=== PATIENT | female | born 1995 | race Caucasian/White ===

== ENCOUNTER 2018-07-25 19:07 | Emergency (ER) | payer BC ==
[~2018-07-25] VITALS: Ht 165.1 cm; Wt 90.0 kg
[2018-07-25 21:32] LABS: BASOPHILS # (AUTO) 0.1 X10'3 (0-0.2); BASOPHILS % (AUTO) 0.9 % (0-1); EOSINOPHILS # (AUTO) 0.1 X10'3 (0-0.9); EOSINOPHILS % (AUTO) 1.4 % (0-6); HEMATOCRIT 43.3 % (35.0-45.0); HEMOGLOBIN 14.5 g/dl (12.0-16.0); LYMPHOCYTES # (AUTO) 3.4 X10'3 (1.1-4.8); LYMPHOCYTES % (AUTO) 43.6 % (21-51); MEAN CORPUSCULAR HEMOGLOBIN 29.8 PG (27.0-31.0); MEAN CORPUSCULAR HGB CONC 33.4 g/dL (33.0-36.5); MEAN CORPUSCULAR VOLUME 89.1 FL (78-98); MEAN PLATELET VOLUME 6.8 FL (7.4-10.4); MONOCYTES # (AUTO) 0.8 X10'3 (0-0.9); MONOCYTES % (AUTO) 10.2 % (2-12); NEUTROPHILS # (AUTO) 3.4 X10'3 (1.8-7.7); NEUTROPHILS % (AUTO) 43.9 % (42-75); PLATELET COUNT 350 X10'3 (140-440); RED BLOOD COUNT 4.86 X10'6 (4.20-5.60); RED CELL DISTRIBUTION WIDTH 13.8 % (11.5-14.5); WHITE BLOOD COUNT 7.7 X10'3 (4.5-11.0)
[2018-07-25 21:46] LABS: ALBUMIN 3.8 G/DL (3.4-5.0); ANION GAP 6 (8-16); BILIRUBIN,TOTAL 0.3 MG/DL (0.1-1.0); BLOOD UREA NITROGEN 14 MG/DL (7-18); BUN/CREATININE RATIO 18.9 (6.6-38.0); CALCIUM 8.8 MG/DL (8.5-10.1); CHLORIDE 103 MMOL/L (99-107); CREATININE 0.74 MG/DL (0.40-0.90); GLUCOSE 89 MG/DL (70-104); POTASSIUM 4.1 MMOL/L (3.5-5.1); SODIUM 137 MMOL/L (135-145); TOTAL CARBON DIOXIDE 28.4 MMOL/L (24-32); TOTAL PROTEIN 7.7 G/DL (6.4-8.2); eGFR > 90 ML/MIN
[2018-07-25 21:47] LABS: ALANINE AMINOTRANSFERASE 48 U/L (12-78); ALKALINE PHOSPHATASE 84 IU/L (46-116); ASPARTATE AMINO TRANSFERASE 18 U/L (10-37)
[2018-07-25 21:56] LABS: ETHANOL < 0.010 GM/DL (0.0-0.010)
--- NOTE | 2018-07-25 22:44 | NUR ---
Pt reports audio hallucinations currently, which she reports is her baseline. She reports male voice tends to be "mean and threatening, but he's kind of quiet now" and female voice "is the cautious one... she's the one I hear more clearly right now." Pt reports a recent psychotropic medication change, but d/t financial constraints and "problems with my insurance, I haven't started yet." Pt verbally agreed to inform staff of any changes r/t audio hallucinations, particularly if she is not able to "ignore them" as effectively as she purportedly is doing currently.
--- NOTE | 2018-07-25 23:02 | NUR ---
Discussed pt status and home meds with Dr Eduardo; new order received.
[2018-07-25] MEDS ORDERED: traZODone 150mg tablet PO ONE (23:20)
[2018-07-25 23:47] LABS: URINE HCG NEGATIVE (NEG)
[2018-07-26 00:03] LABS: URINE AMPHETAMINE SCREEN NEGATIVE (Neg); URINE BARBITUATE SCREEN NEGATIVE (Neg); URINE BENZODIAZEPINES SCREEN NEGATIVE (Neg); URINE CANNABINOID SCREEN POSITIVE (Neg); URINE COCAINE SCREEN NEGATIVE (Neg); URINE METHADONE SCREEN NEGATIVE (Neg); URINE OPIATE SCREEN NEGATIVE (Neg); URINE PHENCYCLIDINE SCREEN NEGATIVE (Neg)
[2018-07-26 05:30] VITALS: BP 133/86
--- NOTE | 2018-07-26 05:55 | NUR ---
Packet sent to [facility]. Unable to confirm receipt of packet as [id number] hours.
--- NOTE | 2018-07-26 06:35 | NUR ---
Patient sleeping on right side. No distress observed. Continue to monitor.
[2018-07-26] MEDS ORDERED: ALPR-624 PO (07:43)
[2018-07-26] MEDS ORDERED: DULO-31 PO (07:43)
[2018-07-26] MEDS ORDERED: TOPI50CA5 PO (07:43)
[2018-07-26] MEDS ORDERED: CARI6CAP PO (07:43)
[2018-07-26] MEDS ORDERED: duloxetine 30mg CAPSULE.DR PO SCH (08:00)
[2018-07-26] MEDS ORDERED: topiramate 25mg tablet PO SCH (08:00)
--- NOTE | 2018-07-26 08:20 | NUR ---
Patient sleeping in bed. No distress observed. Continue to monitor.
--- NOTE | 2018-07-26 10:40 | NUR ---
Patient taking on phone with family. Patient has had many calls checking up on her. No distress observed. Continue to monitor.
[2018-07-26] MEDS ORDERED: traZODone 150mg tablet PO SCH (20:00)
[2018-07-26] MEDS ORDERED: CARIPRAZINE 1.5 MG CAPSULE PO SCH (21:00)
== END 2018-07-26 11:45 | disposition home or self-care (01) ==
LOC: ER 19:08
DX: R45.851 Suicidal ideations (principal); F31.9 Bipolar disorder, unspecified; F20.9 Schizophrenia, unspecified
CPT/HCPCS: 36415; 80053; 80305; 80320; 81025; 84443; 85025; 99284

== ENCOUNTER 2019-05-29 19:52 | Emergency (ER) | payer BC, MEDICAID ==
[~2019-05-29] VITALS: Ht 165.1 cm; Wt 90.0 kg
[~2019-05-29 19:52] MED LIST: ALPR-624 PO; CARI6CAP PO; DULO-31 PO; TOPI50CA5 PO
--- NOTE | 2019-05-29 20:13 | NUR ---
Patient brought to bed 22 from Triage. Patient is being changed into green scrubs by the battery technician.
--- NOTE | 2019-05-29 20:20 | NUR ---
Patient is changed into green scrubs and give non slip socks. Patient ambulates to the bathroom and back.
[2019-05-29] MEDS ORDERED: TOPI50CA5 PO (20:52)
[2019-05-29] MEDS ORDERED: TRAZ-251 PO (20:54)
[2019-05-29] MEDS ORDERED: TRAZ-256 PO (21:03)
[2019-05-29] MEDS ORDERED: DESV50TA10 PO (21:06)
[2019-05-29] MEDS ORDERED: DESV50TA PO (21:11)
[2019-05-29] MEDS ORDERED: traZODone 50mg tablet PO SCH (21:25)
[2019-05-29] MEDS ORDERED: traZODone 50mg tablet PO ONE (21:25)
[2019-05-29] MEDS ORDERED: ALPRAZolam 0.5mg tablet PO PRN (21:30)
[2019-05-29 22:19] LABS: BASOPHILS # (AUTO) 0.1 X10'3 (0-0.2); BASOPHILS % (AUTO) 0.7 % (0-1); EOSINOPHILS # (AUTO) 0.2 X10'3 (0-0.9); EOSINOPHILS % (AUTO) 1.5 % (0-6); HEMATOCRIT 44.5 % (35.0-45.0); LYMPHOCYTES # (AUTO) 2.9 X10'3 (1.1-4.8); LYMPHOCYTES % (AUTO) 23.4 % (21-51); MEAN CORPUSCULAR HEMOGLOBIN 30.2 PG (27.0-31.0); MEAN CORPUSCULAR HGB CONC 33.8 g/dL (33.0-36.5); MEAN CORPUSCULAR VOLUME 89.1 FL (78-98); MEAN PLATELET VOLUME 7.1 FL (7.4-10.4); MONOCYTES # (AUTO) 0.6 X10'3 (0-0.9); MONOCYTES % (AUTO) 5.1 % (2-12); NEUTROPHILS # (AUTO) 8.5 X10'3 (1.8-7.7); NEUTROPHILS % (AUTO) 69.3 % (42-75); PLATELET COUNT 393 X10'3 (140-440); RED BLOOD COUNT 4.99 X10'6 (4.20-5.60); RED CELL DISTRIBUTION WIDTH 14.2 % (11.5-14.5); WHITE BLOOD COUNT 12.3 X10'3 (4.5-11.0)
[2019-05-29 22:19] LABS: CLARITY,URINE SLIGHTLY CLOUDY (Clear); COLOR,URINE YELLOW (Yellow); GLUCOSE, URINE NEGATIVE (Neg); KETONES,URINE NEGATIVE (Neg); LEUKOCYTE ESTERASE ,URINE SMALL (Neg); NITRITES, URINE NEGATIVE (Neg); OCCULT BLOOD,URINE LARGE (Neg); PROTEIN,URINE NEGATIVE (Neg); UROBILINOGEN,URINE 0.2 E.U/dL (0.2-1.0)
[2019-05-29 22:23] LABS: UA COLLECTION TYPE CLN CATCH MIDSTREAM; URINE HCG NEGATIVE (NEG)
[2019-05-29 22:30] LABS: ALANINE AMINOTRANSFERASE 13 U/L (12-78); ALBUMIN 3.8 G/DL (3.4-5.0); ALKALINE PHOSPHATASE 91 IU/L (46-116); ANION GAP 8 (8-16); ASPARTATE AMINO TRANSFERASE 14 U/L (10-37); BILIRUBIN,TOTAL 0.1 MG/DL (0.1-1.0); BLOOD UREA NITROGEN 11 MG/DL (7-18); BUN/CREATININE RATIO 14.3 (6.6-38.0); CALCIUM 8.6 MG/DL (8.5-10.1); CHLORIDE 105 MMOL/L (99-107); CREATININE 0.77 MG/DL (0.40-0.90); ETHANOL < 0.010 GM/DL (0.0-0.010); GLUCOSE 90 MG/DL (70-104); POTASSIUM 3.7 MMOL/L (3.5-5.1); SODIUM 140 MMOL/L (135-145); TOTAL CARBON DIOXIDE 27.4 MMOL/L (24-32); TOTAL PROTEIN 7.7 G/DL (6.4-8.2); eGFR > 90 ML/MIN
[2019-05-29 22:33] LABS: BACTERIA,URINE 2+ /HPF (Neg); RBC,URINE 0-2 /HPF (0-2); SQUAMOUS EPITHELIAL CELL,UR MANY /LPF (FEW)
[2019-05-29 22:37] LABS: ACETAMINOPHEN < 2.0 UG/ML (10-30)
[2019-05-29 22:38] LABS: URINE AMPHETAMINE SCREEN NEGATIVE (Neg); URINE BARBITUATE SCREEN NEGATIVE (Neg); URINE BENZODIAZEPINES SCREEN POSITIVE (Neg); URINE CANNABINOID SCREEN POSITIVE (Neg); URINE COCAINE SCREEN NEGATIVE (Neg); URINE METHADONE SCREEN NEGATIVE (Neg); URINE OPIATE SCREEN NEGATIVE (Neg); URINE PHENCYCLIDINE SCREEN NEGATIVE (Neg)
--- NOTE | 2019-05-29 23:00 | NUR ---
Patient is sleeping quietly on her right side.
--- NOTE | 2019-05-30 00:47 | NUR ---
Patient is sleeping quietly on her right side.
--- NOTE | 2019-05-30 02:44 | NUR ---
Patient is sleeping quietly on her right side.
--- NOTE | 2019-05-30 04:30 | NUR ---
Patient sleeping on her left side.
--- NOTE | 2019-05-30 05:54 | NUR ---
Patient sleeping on her left side in bed.
--- NOTE | 2019-05-30 06:46 | NUR ---
Patient is sleeping on her left side in bed. No s/s of distress noted.
--- NOTE | 2019-05-30 07:59 | NUR ---
Patient up to restroom. Now sitting up in bed quietly.
[2019-05-30] MEDS ORDERED: DESVENLAFAXINE 25 MG PO SCH (08:00)
--- NOTE | 2019-05-30 09:01 | NUR ---
Patient states that she has been off her medications for the last two days. When she was at home, she started "freaking out" about the co-v-19, she states that she lives alone. She was hearing two voices one telling her to hurt herself. Today, she denies AVH, and denies SI. Patient feels safe in hospital. Awaiting [facility] eval.
--- NOTE | 2019-05-30 09:45 | NUR ---
Jeaneth Bermudez from [facility] here to evaluate patient. She is releasing her to home.
[2019-05-30 09:54] VITALS: BP 103/66
[2019-05-30] MEDS ORDERED: traZODone 50mg tablet PO SCH (21:00)
[2019-05-30] MEDS ORDERED: CARIPRAZINE HYDROCHLORIDE PO SCH (21:00)
== END 2019-05-30 10:10 | disposition home or self-care (01) ==
LOC: ER 19:53
DX: F20.0 Paranoid schizophrenia (principal); F31.9 Bipolar disorder, unspecified; F12.90 Cannabis use, unspecified, uncomplicated; F17.200 Nicotine dependence, unspecified, uncomplicated; Z79.899 Other long term (current) drug therapy
CPT/HCPCS: 36415; 80053; 80178; 80305; 80320; 80329; 81001; 81025; 84443; 85025; 99283

== ENCOUNTER 2020-05-19 12:30 | Emergency (ER) | payer BC, MEDICAID ==
[~2020-05-19 12:30] MED LIST changes: +DESV50TA PO; -DULO-31 PO; +TRAZ-256 PO
[2020-05-19] MEDS ORDERED: ALPR1TAB2 PO (13:41)
[2020-05-19] MEDS ORDERED: CARI6CAP PO (13:42)
[2020-05-19 13:44] LABS: BASOPHILS # (AUTO) 0.1 X10'3 (0-0.2); BASOPHILS % (AUTO) 0.5 % (0-1); EOSINOPHILS # (AUTO) 0.2 X10'3 (0-0.9); EOSINOPHILS % (AUTO) 1.6 % (0-6); HEMATOCRIT 42.7 % (35.0-45.0); HEMOGLOBIN 14.2 g/dl (12.0-16.0); LYMPHOCYTES # (AUTO) 2.7 X10'3 (1.1-4.8); LYMPHOCYTES % (AUTO) 22.5 % (21-51); MEAN CORPUSCULAR HEMOGLOBIN 30.3 PG (27.0-31.0); MEAN CORPUSCULAR HGB CONC 33.2 g/dL (33.0-36.5); MEAN CORPUSCULAR VOLUME 91.2 FL (78-98); MONOCYTES # (AUTO) 0.7 X10'3 (0-0.9); MONOCYTES % (AUTO) 5.7 % (2-12); NEUTROPHILS # (AUTO) 8.2 X10'3 (1.8-7.7); NEUTROPHILS % (AUTO) 69.7 % (42-75); PLATELET COUNT 353 X10'3 (140-440); RED BLOOD COUNT 4.68 X10'6 (4.20-5.60); RED CELL DISTRIBUTION WIDTH 13.4 % (11.5-14.5); WHITE BLOOD COUNT 11.8 X10'3 (4.5-11.0)
[2020-05-19] MEDS ORDERED: DESV100T16 PO (13:44)
[2020-05-19 13:46] LABS: CLARITY,URINE CLOUDY (Clear); COLOR,URINE YELLOW (Yellow); GLUCOSE, URINE NEGATIVE (Neg); KETONES,URINE NEGATIVE (Neg); LEUKOCYTE ESTERASE ,URINE SMALL (Neg); NITRITES, URINE NEGATIVE (Neg); OCCULT BLOOD,URINE NEGATIVE (Neg); PROTEIN,URINE NEGATIVE (Neg); UROBILINOGEN,URINE 0.2 E.U/dL (0.2-1.0)
[2020-05-19] MEDS ORDERED: TOPI50TA24 PO (13:46)
[2020-05-19 13:47] LABS: UA COLLECTION TYPE CLN CATCH MIDSTREAM
[2020-05-19 13:53] LABS: MUCUS STRANDS MANY /LPF (Neg); SQUAMOUS EPITHELIAL CELL,UR MANY /LPF (FEW)
[2020-05-19 13:54] LABS: BACTERIA,URINE 2+ /HPF (Neg)
[2020-05-19 13:56] LABS: RBC,URINE 0-2 /HPF (0-2)
[2020-05-19 14:00] LABS: ALANINE AMINOTRANSFERASE 34 U/L (12-78); ALBUMIN 3.7 G/DL (3.4-5.0); ALBUMIN/GLOBULIN RATIO 0.9 (1.1-1.5); ALKALINE PHOSPHATASE 76 IU/L (46-116); ANION GAP 8 (8-16); ASPARTATE AMINO TRANSFERASE 13 U/L (10-37); BILIRUBIN,TOTAL 0.2 MG/DL (0.1-1.0); BLOOD UREA NITROGEN 10 MG/DL (7-18); BUN/CREATININE RATIO 12.3 (6.6-38.0); CALCIUM 9.2 MG/DL (8.5-10.1); CHLORIDE 103 MMOL/L (99-107); CREATININE 0.81 MG/DL (0.40-0.90); GLUCOSE 96 MG/DL (70-104); POTASSIUM 3.6 MMOL/L (3.5-5.1); SODIUM 138 MMOL/L (135-145); TOTAL CARBON DIOXIDE 26.6 MMOL/L (24-32); TOTAL PROTEIN 7.7 G/DL (6.4-8.2); eGFR 87 ML/MIN
[2020-05-19 14:01] LABS: URINE AMPHETAMINE SCREEN NEGATIVE (Neg); URINE BARBITUATE SCREEN NEGATIVE (Neg); URINE BENZODIAZEPINES SCREEN POSITIVE (Neg); URINE CANNABINOID SCREEN POSITIVE (Neg); URINE COCAINE SCREEN NEGATIVE (Neg); URINE METHADONE SCREEN NEGATIVE (Neg); URINE OPIATE SCREEN NEGATIVE (Neg); URINE PHENCYCLIDINE SCREEN NEGATIVE (Neg)
[2020-05-19 14:09] LABS: ETHANOL < 0.010 GM/DL (0.0-0.010)
[2020-05-19 14:15] VITALS: BP 130/96
--- NOTE | 2020-05-19 14:44 | NUR ---
Patient is tearful c/o feeling suicidal. Patient had a positive HPV result but patient suffers from overall depression. Patient lives alone with her cat but her mother is a good moral support. Patient states she also has 2 friends. Patient has a dX of schizo-affective. Last heard voices 2 weeks ago. Mostly mumbling and a commotion but sometimes derogatory statements about what she is saying. Patient sees Dr Ramirez. Patient stopped her meds 2 weeks ago but has been back on the for about 1 week. Patient pending lab results/fax packet to [facility]. RN reassured patient that she is safe here and we will get her help. Continue to monitor.
[2020-05-19 14:57] LABS: URINE HCG NEGATIVE (NEG)
[2020-05-19] MEDS ORDERED: PANT40TA54 PO (15:01)
[2020-05-19] MEDS ORDERED: LURA40TA3 PO (15:01)
--- NOTE | 2020-05-19 15:21 | NUR ---
Spoke to patient's mom with permission of patient.
[2020-05-19] MEDS ORDERED: ALPRAZolam 0.5mg tablet PO PRN (15:40)
[2020-05-19] MEDS ORDERED: lurasidone 20mg tablet PO SCH (18:00)
[2020-05-19] MEDS ORDERED: topiramate 100mg tablet PO SCH (21:00)
[2020-05-19] MEDS ORDERED: venlafaxine 25mg tablet PO SCH (21:00)
[2020-05-19] MEDS ORDERED: traZODone 50mg tablet PO SCH (21:00)
[2020-05-20] MEDS ORDERED: CARIPRAZINE 1.5 MG CAPSULE PO SCH (08:00)
[2020-05-20] MEDS ORDERED: pantoprazole 40mg Tablet.DR PO SCH (08:00)
== END 2020-05-19 17:40 | disposition home or self-care (01) ==
LOC: ER 12:30
DX: R45.851 Suicidal ideations (principal); Z20.822 Contact with and (suspected) exposure to COVID-19; F31.9 Bipolar disorder, unspecified; F20.9 Schizophrenia, unspecified; F17.200 Nicotine dependence, unspecified, uncomplicated; F12.90 Cannabis use, unspecified, uncomplicated; Z91.040 Latex allergy status; Z79.899 Other long term (current) drug therapy
CPT/HCPCS: 36415; 80053; 80305; 80320; 81001; 81025; 84443; 85025; 87635; 99285; C9803

== ENCOUNTER 2022-10-21 07:20 | Emergency (ER) | payer BC, MEDICAID ==
[~2022-10-21] VITALS: Ht 165.1 cm; Wt 87.7 kg
[~2022-10-21 07:20] MED LIST changes: -ALPR-624 PO; +ALPR1TAB2 PO; +DESV100T16 PO; -DESV50TA PO; +LURA40TA2 PO; +PANT40TA54 PO; +TOPI-253 PO; -TOPI50CA5 PO
[2022-10-21 07:22] VITALS: BP 127/100; PULSE 99; RESP 20; TEMP 96.1; O2SAT 99
== END 2022-10-21 08:15 | disposition left against medical advice (07) ==
LOC: ER 07:21
DX: F32.A Depression, unspecified (principal); Z53.21 Procedure and treatment not carried out due to patient leaving prior to being seen by health care provider
CPT/HCPCS: 99281

== ENCOUNTER 2022-11-03 09:57 | Emergency (ER) | payer MEDICARE, MEDICAID ==
[~2022-11-03] VITALS: Ht 165.1 cm; Wt 90.9 kg
[2022-11-03 10:58] VITALS: TEMP 98.1
[2022-11-03 11:32] LABS: BILIRUBIN,URINE NEGATIVE (Neg); CLARITY,URINE SLIGHTLY CLOUDY (Clear); COLOR,URINE YELLOW (Yellow); GLUCOSE, URINE NEGATIVE (Neg); KETONES,URINE NEGATIVE (Neg); LEUKOCYTE ESTERASE ,URINE NEGATIVE (Neg); NITRITES, URINE NEGATIVE (Neg); OCCULT BLOOD,URINE NEGATIVE (Neg); PH,URINE 6.5 (4.8-8.0); PROTEIN,URINE NEGATIVE (Neg); UROBILINOGEN,URINE 0.2 E.U/dL (0.2-1.0)
[2022-11-03 11:33] LABS: URINE HCG NEGATIVE (NEG)
[2022-11-03 11:36] LABS: UA COLLECTION TYPE CLN CATCH MIDSTREAM
[2022-11-03 11:41] LABS: BASOPHILS # (AUTO) 0.1 X10'3 (0-0.2); BASOPHILS % (AUTO) 0.7 % (0-1); EOSINOPHILS # (AUTO) 0.3 X10'3 (0-0.9); EOSINOPHILS % (AUTO) 2.8 % (0-6); HEMATOCRIT 41.4 % (35.0-45.0); HEMOGLOBIN 14.1 g/dl (12.0-16.0); LYMPHOCYTES # (AUTO) 3.1 X10'3 (1.1-4.8); MEAN CORPUSCULAR HEMOGLOBIN 31.2 PG (27.0-31.0); MEAN CORPUSCULAR VOLUME 91.9 FL (78-98); MONOCYTES # (AUTO) 0.6 X10'3 (0-0.9); MONOCYTES % (AUTO) 5.5 % (2-12); NEUTROPHILS # (AUTO) 6.4 X10'3 (1.8-7.7); PLATELET COUNT 406 X10'3 (140-440); RED BLOOD COUNT 4.51 X10'6 (4.20-5.60); RED CELL DISTRIBUTION WIDTH 14.1 % (11.5-14.5); WHITE BLOOD COUNT 10.5 X10'3 (4.5-11.0)
[2022-11-03 11:46] LABS: BACTERIA,URINE FEW /HPF (Neg); MUCUS STRANDS FEW /LPF (Neg); RBC,URINE 0-2 /HPF (0-2); SQUAMOUS EPITHELIAL CELL,UR MANY /LPF (FEW); WBC,URINE 0-4 /HPF (0-4)
[2022-11-03 11:51] LABS: ALANINE AMINOTRANSFERASE 20 U/L (12-78); ALBUMIN 3.5 G/DL (3.4-5.0); ALKALINE PHOSPHATASE 60 IU/L (46-116); ANION GAP 7 (8-16); ASPARTATE AMINO TRANSFERASE 11 U/L (10-37); BILIRUBIN,TOTAL 0.1 MG/DL (0.1-1.0); BLOOD UREA NITROGEN 11 MG/DL (7-18); BUN/CREATININE RATIO 16.7 (10.0-20.0); CALCIUM 8.8 MG/DL (8.5-10.1); CHLORIDE 105 MMOL/L (99-107); CREATININE 0.66 MG/DL (0.40-0.90); GLUCOSE 91 MG/DL (70-104); LIPASE < 50 U/L (73-393); POTASSIUM 3.9 MMOL/L (3.5-5.1); SODIUM 138 MMOL/L (135-145); eCRCL 115 ML/MIN; eGFR > 90 ML/MIN
[2022-11-03 12:25] VITALS: BP 131/88; PULSE 75; RESP 15; O2SAT 97
== END 2022-11-03 12:26 | disposition home or self-care (01) ==
LOC: ER 09:58
DX: K92.0 Hematemesis (principal); F31.9 Bipolar disorder, unspecified; F12.90 Cannabis use, unspecified, uncomplicated; Z91.040 Latex allergy status; Z79.899 Other long term (current) drug therapy
CPT/HCPCS: 36415; 80053; 81001; 81025; 83690; 85025; 99283

== ENCOUNTER 2022-11-28 10:52 | Emergency (ER) | payer MEDICARE, MEDICAID ==
[~2022-11-28] VITALS: Ht 172.7 cm; Wt 100.0 kg
[2022-11-28 10:57] VITALS: BP 142/85; PULSE 114; RESP 18; O2SAT 98
--- NOTE | 2022-11-28 11:17 | NUR ---
Pt here for bite to left thumb, pt here for tender to the touch. pt states warm and appears to be a bubble on bite pt is not current on tetanus and was bitten by a feral cat last night. Pt does struggle with mental health and hallucinations alot more lately and states she feels confused. XPLVN
[2022-11-28] MEDS ORDERED: CARI1.5C (11:23)
[2022-11-28] MEDS ORDERED: DESV50TA (11:23)
[2022-11-28] MEDS ORDERED: AMOX-117 PO (15:47)
[2022-11-28 15:52] VITALS: TEMP 97.8
== END 2022-11-28 15:54 | disposition home or self-care (01) ==
LOC: ER 10:52
DX: S61.231A Puncture wound without foreign body of left index finger without damage to nail, initial encounter (principal); F31.9 Bipolar disorder, unspecified; F20.9 Schizophrenia, unspecified; F17.200 Nicotine dependence, unspecified, uncomplicated; F12.10 Cannabis abuse, uncomplicated; W55.01XA Bitten by cat, initial encounter; Y93.89 Activity, other specified; Y92.89 Other specified places as the place of occurrence of the external cause; Y99.8 Other external cause status
CPT/HCPCS: 99284

== ENCOUNTER 2023-04-14 15:13 | Emergency (ER) | payer MEDICARE, MEDICAID ==
[~2023-04-14] VITALS: Ht 165.1 cm; Wt 87.6 kg
[~2023-04-14 15:13] MED LIST changes: +CARI1.5C; +DESV50TA; -TOPI-253 PO; +TOPI-95 PO
[2023-04-14 15:16] VITALS: BP 149/126; PULSE 110; RESP 16; TEMP 98.9; O2SAT 97
[2023-04-14] MEDS ORDERED: ondansetron 4mg rapidly disintigrating tab PO ONE (15:25)
[2023-04-14 16:14] LABS: BASOPHILS # (AUTO) 0.1 X10'3 (0-0.2); BASOPHILS % (AUTO) 0.9 % (0-1); EOSINOPHILS # (AUTO) 0.2 X10'3 (0-0.9); EOSINOPHILS % (AUTO) 1.6 % (0-6); HEMATOCRIT 47.4 % (35.0-45.0); HEMOGLOBIN 16.1 g/dl (12.0-16.0); LYMPHOCYTES # (AUTO) 3.2 X10'3 (1.1-4.8); LYMPHOCYTES % (AUTO) 30.2 % (21-51); MEAN CORPUSCULAR HEMOGLOBIN 30.9 PG (27.0-31.0); MEAN CORPUSCULAR HGB CONC 33.9 g/dL (33.0-36.5); MEAN CORPUSCULAR VOLUME 91.2 FL (78-98); MEAN PLATELET VOLUME 7.1 FL (7.4-10.4); MONOCYTES # (AUTO) 0.7 X10'3 (0-0.9); MONOCYTES % (AUTO) 6.3 % (2-12); NEUTROPHILS # (AUTO) 6.4 X10'3 (1.8-7.7); PLATELET COUNT 416 X10'3 (140-440); RED CELL DISTRIBUTION WIDTH 13.8 % (11.5-14.5); WHITE BLOOD COUNT 10.5 X10'3 (4.5-11.0)
[2023-04-14 16:21] LABS: PREOP URINE HCG NEGATIVE (NEGATIVE)
[2023-04-14 16:22] LABS: BILIRUBIN,URINE NEGATIVE (Neg); CLARITY,URINE SLIGHTLY CLOUDY (Clear); COLOR,URINE YELLOW (Yellow); GLUCOSE, URINE NEGATIVE (Neg); KETONES,URINE NEGATIVE (Neg); LEUKOCYTE ESTERASE ,URINE TRACE (Neg); NITRITES, URINE NEGATIVE (Neg); OCCULT BLOOD,URINE SMALL (Neg); PH,URINE 5.5 (4.8-8.0); PROTEIN,URINE TRACE mg/dl (Neg); UROBILINOGEN,URINE 0.2 E.U/dL (0.2-1.0)
[2023-04-14 16:24] LABS: ALANINE AMINOTRANSFERASE 19 U/L (12-78); ALKALINE PHOSPHATASE 65 IU/L (46-116); ANION GAP 10 (8-16); ASPARTATE AMINO TRANSFERASE 9 U/L (10-37); BILIRUBIN,TOTAL 0.5 MG/DL (0.1-1.0); BLOOD UREA NITROGEN 6 MG/DL (7-18); BUN/CREATININE RATIO 8.3 (10.0-20.0); CALCIUM 9.2 MG/DL (8.5-10.1); CHLORIDE 104 MMOL/L (99-107); CREATININE 0.72 MG/DL (0.40-0.90); GLUCOSE 112 MG/DL (70-104); LIPASE 11 U/L (16-77); POTASSIUM 3.3 MMOL/L (3.5-5.1); SODIUM 137 MMOL/L (135-145); TOTAL CARBON DIOXIDE 22.6 MMOL/L (24-32); eCRCL 106 ML/MIN; eGFR > 90 ML/MIN
[2023-04-14 16:29] LABS: UA COLLECTION TYPE CLN CATCH MIDSTREAM
[2023-04-14 16:31] LABS: BACTERIA,URINE 1+ /HPF (Neg); MUCUS STRANDS FEW /LPF (Neg); RBC,URINE 0-2 /HPF (0-2); SQUAMOUS EPITHELIAL CELL,UR MANY /LPF (FEW)
== END 2023-04-14 19:50 | disposition left against medical advice (07) ==
LOC: ER 15:14
DX: K52.9 Noninfective gastroenteritis and colitis, unspecified (principal); R11.10 Vomiting, unspecified; R05.9 Cough, unspecified; R10.84 Generalized abdominal pain; R06.02 Shortness of breath; F20.9 Schizophrenia, unspecified; F12.90 Cannabis use, unspecified, uncomplicated; Z72.89 Other problems related to lifestyle; Z91.040 Latex allergy status; Z79.899 Other long term (current) drug therapy
CPT/HCPCS: 36415; 71045; 74176; 80053; 81001; 81025; 83690; 85025; 99284

== ENCOUNTER 2023-10-30 20:00 | Emergency (ER) | payer MEDICARE, MEDICAID ==
[~2023-10-30] VITALS: Ht 165.1 cm; Wt 80.9 kg
[2023-10-30 20:08] VITALS: BP 131/89; PULSE 94; RESP 17; TEMP 98.4; O2SAT 98
== END 2023-10-30 21:20 | disposition left against medical advice (07) ==
LOC: ER 20:01
DX: J02.9 Acute pharyngitis, unspecified (principal); R49.1 Aphonia; Z53.21 Procedure and treatment not carried out due to patient leaving prior to being seen by health care provider; Z88.8 Allergy status to other drugs, medicaments and biological substances

== ENCOUNTER 2024-08-09 14:28 | Emergency (ER) | payer MEDICARE, MEDICAID ==
[~2024-08-09] VITALS: Ht 165.1 cm; Wt 84.3 kg
[2024-08-09 14:39] VITALS: BP 136/88; PULSE 100; RESP 16; TEMP 97.5; O2SAT 98
--- NOTE | 2024-08-09 14:53 | Physician Documentation ---
History of Present Illness ~ General Chief Complaint: See Chief Complaint Stated Complaint: TEST Time Seen by MD: 14:51 Primary Medical Doctor: Semaj PEOPLES History of Present Illness Initial Comments 28 yr old female presents due to amenorrhea, requests test. Reports that she had a negative test as an outpatient recently. Medication Reconciliation Allergies: Coded Allergies: latex (Verified Allergy, Unknown, 08/09/24) Uncoded Allergies: ANESTHESIA (Adverse Reaction, Unknown, 11/28/22) Scheduled Cariprazine Hydrochloride (Vraylar), 1 CAP PO DAILY, (Reported) Desvenlafaxine Succinate (Desvenlafaxine Succinate ER), 100 MG PO HS, (Reported) Lurasidone HCl (Latuda), 2 TAB PO HS, (Reported) Pantoprazole Sodium (Pantoprazole Sodium), 1 TAB PO DAILY, (Reported) Topiramate (Topiramate), 2 TAB PO HS, (Reported) Trazodone HCl (Trazodone HCl), 1 TAB PO HS, (Reported) Scheduled PRN Alprazolam (Xanax), 0.5 TAB PO TID PRN for for anxiety/agitation, (Reported) Miscellaneous Medications Cariprazine Hydrochloride (Vraylar), (Reported) Desvenlafaxine Succinate (Pristiq), (Reported) Past Medical History Past Medical History: *PSYCH*, Bipolar, Schizophrenia Past Surgical History: noncontributory Alcohol Use: Rarely Drug Use: marijuana Lives with: Family Lives In: Home Occupation: employed Past Social History: patient vapes and smoked cigars Review of Systems ROS As stated above in the HPI, otherwise all systems are reviewed and negative. Physical Exam Physical Exam Vital Signs: Temperature: 97.5, Source: Temporal, Heart Rate: 100, Respiratory Rate: 16, BP: 136/88, Pulse Oximetry: 98, Weight: 84.350 Oxygen Flow Rate: 0 Physical Exam General: Alert, no apparent distress. HEENT: PERRL, EOMI, no injection, moist mucous membranes. Neck: Full range of motion. Respiratory: Lungs clear, no respiratory distress. Chest: No accessory muscle use. Cardiovascular: Regular rate and rhythm, no murmurs. Gastrointestinal: Soft, nontender, nondistended. Bowels sounds present. Extremities: Normal range of motion, no deformity. Neurologic: Oriented x4. Psychiatric: Normal mood and affect. Skin: Normal color, warm and dry. No edema, no ecchymosis. Progress Results/Orders Results/Orders Completed Orders - JOCELYN WYATT NP Hcg, Ur Ql (08/09/24 14:51) Vital Signs 08/09/24 14:39 Temp 97.5 Pulse 100 Resp 16 B/P (MAP) 136/88 Pulse Ox 98 O2 Flow Rate 0 Laboratory Tests Test 08/09/24 14:42 Urine HCG, Qualitative Positive Medical Decision Making Differential Diagnosis 48-year-old female presents to the emergency department requesting a test as she is a week late for her period and is sexually active. Denies any other concerns. Departure Time of Disposition: 15:39 Disposition: 01 HOME / SELF CARE / HOMELESS Impression: Primary Impression: test positive Condition: Stable Discharge Instructions: ABCs of Additional Instructions: Your test was positive. See your primary care provider soon and request a referral to [facility]. Return for any emergent issues that arise while you are awaiting this referral. Referrals: NO PRIMARY CARE PROVIDER (PCP) Education Educated: Patient Educated regarding: diagnosis, treatment, prognosis, need for follow up Signature Scribe Signature: no scribe Attestation: The note accurately reflects work and decisions made by me.Jocelyn Wright NP 08/09/24 14:53 JOCELYN WYATT NP Aug 09, 2024 14:53
[2024-08-09 15:19] LABS: URINE HCG POSITIVE (NEG)
== END 2024-08-09 15:55 | disposition home or self-care (01) ==
LOC: ER 14:29
DX: N91.2 Amenorrhea, unspecified (principal)
CPT/HCPCS: 81025; 99283